=== PATIENT | female | born 1980 | race Caucasian/White ===

== ENCOUNTER 2024-07-31 08:54 | Outpatient (REF) | payer OTHER, SELFPAY ==
[2024-07-31 10:41] LABS: MANUAL DIFF FLAG NO
[2024-07-31 10:49] LABS: Basophils Absolute Auto 0.1 X10*3/uL (0.0-0.2); Basophils Percent Auto 0.8 % (0-2); Eosinophils Absolute Auto 0.4 X10*3/uL (0.0-0.4); Eosinophils Percent Auto 4.8 % (0-4); Hematocrit 35.8 % (37.0-47.0); Hemoglobin 11.9 g/dl (12.0-16.0); Imm Gran Abs Auto 0.01 X10*3/uL (0.00-0.03); Imm Gran Pct Auto 0.1 % (0.0-0.4); Lymphocytes Absolute Auto 1.5 X10*3/uL (1.2-4.9); Lymphocytes Percent Auto 16.6 % (20-40); Mean Corpuscular HGB Conc 33.2 g/dl (31.0-35.0); Mean Corpuscular Hemoglobin 31.2 pg (27.0-33.0); Mean Platelet Volume 9.9 fL (9.4-12.3); Monocytes Percent Auto 10.5 % (2-11); Neutrophils Absolute Auto 6.1 x10*3/uL (2.0-8.3); Neutrophils Percent Auto 67.2 % (45-73); Platelet Count 325 X10*3/uL (160-400); Red Blood Count 3.81 X10*6/uL (4.20-5.50); Red Cell Distribution Width 12.2 % (11.0-16.0); White Blood Count 9.1 X10*3/uL (4.8-10.8)
[2024-07-31 11:14] LABS: Rheumatoid Factor 15.9 IU/mL (<15.0)
[2024-07-31 11:25] LABS: Alanine Aminotransferase 18 U/L (0-31); Albumin Level 4.4 g/dL (3.5-5.0); Alkaline Phosphatase 59 U/L (39-117); Anion Gap 10 (12-20); Aspartate Amino Transferase 21 U/L (5-31); Bilirubin Total 0.4 mg/dL (0.0-1.0); Blood Urea Nitrogen 10 mg/dL (9-16); Calcium 9.6 mg/dL (8.4-10.2); Carbon Dioxide 26 mmol/L (22-29); Chloride 106 mmol/L (96-108); Cholesterol 169 mg/dL (<200); Estimated Glomerular Filt Rate > 60; Glucose Random 82 mg/dL (60-115); HDL Cholesterol 53 mg/dL (>40); LDL Cholesterol Calculated 105 mg/dL (<100); Potassium 4.1 mmol/L (3.3-5.1); Sodium 138 mmol/L (135-145); Total Protein 8.2 g/dL (6.5-8.0); Triglycerides 56 mg/dL (<150)
[2024-07-31 11:28] LABS: Erythrocyte Sedimentation Rate 21 MM/HR (0-20)
[2024-07-31 11:42] LABS: Thyroid Stimulating Hormone 1.49 uIU/mL (0.32-4.0)
[2024-08-03 22:08] LABS: Cyclic Citrullinated Peptide <16 UNITS
[2024-08-06 14:09] LABS: Anti Nuclear Antibody Screen NEGATIVE (NEGATIVE)
== END 2024-07-31 08:55 | disposition home or self-care (01) ==
LOC: HO.10HDL 08:54
PROVIDERS: Visit Provider Internal Medicine
DX: Z00.00 Encounter for general adult medical examination without abnormal findings (principal); Z13.31 Encounter for screening for depression; M13.0 Polyarthritis, unspecified; E66.9 Obesity, unspecified
CPT/HCPCS: 36415; 80053; 80061; 84443; 85025; 85652; 86038; 86200; 86431

== ENCOUNTER 2025-04-26 14:52 | Outpatient (AMB) | payer OTHER, SELFPAY ==
--- NOTE | 2025-04-26 15:12 | A.OFFPC_ITS ---
Vital Signs 04/26/25 15:15 Height 5 ft 2.6 in Weight 211 lb BMI 37.9 BP 132/80 Respiration 16 Pulse 84 Pulse Source Pulse Oximeter Temp 98.2 F Temp Source Temporal Artery Scan Pulse Oximetry (%) 97 Oxygen Delivery Method Room Air Intake Visit Reasons: establish 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 with a new primary care physician. She was previously screened for diabetes, with neg ative results. Review of recent lab results reveals mild anemia with a hemoglobin of 11.9 g/dL and borderline elevated cholesterol with an LDL of 105 mg/dL. Her electrolytes, kidney function, and gallbladder function were normal. Previous lab work included thyroid studies, but vitamin D, vitamin B12, and iron levels were not checked. The patient reports experiencing bone pain and headaches, which she questions may be related to her age. She has a history of a mammogram performed six years ago in [place] and is seeking a referral for a paper machine backtender. Social History - The patient moved from [place] thr ee years ago. - She desires to lose weight. [facility] Medical History (Updated 04/26/25 @ 16:39 by Janiya Rodriguez PA-C) Healthcare maintenance Insomnia Mild anemia Hyperlipidemia LDL goal <100 Heart murmur Cervical cancer screening Class 2 obesity with body mass index (BMI) of 37.0 to 37.9 in adult Rheumatoid factor positive Multiple joint pain Family History Mother Obesity Diabetes Father No problems noted. Social History Housing: House Alcohol intake: current Alcohol intake frequency: holidays/special occasions only Patient Tobacco Use Status: Never used Tobacco service: No Current occupational status: unemployed Cognitive needs: No Hearing needs: No Vision needs: Yes (rx glasses) Questionnaire PHQ-9 Over the last 2 weeks, how often have you been bothered by any of the following problems? 1. Little interest or pleasure in doing things: not at all 2. Feeling down, depressed, or hopeless: not at all 3. Trouble falling or staying asleep, or sleeping too much: not at all 4. Feeling tired or having little energy: not at all 5. Poor appetite or overeating: not at all 6. Feeling bad about yourself - or that you are a failure or have let yourself or your family down: not at all 7. Trouble concentrating on things, such as reading the newspaper or watching television: not at all 8. Moving or speaking so slowly that other people could have noticed. Or the opposite - being so fidgety or restless that you have been moving around a lot more than usual: not at all 9. Thoughts that you would be better off or of hurting yourself in some way: not at all Total score: 0 Depression Screening Interpretation: Negative Depression Screening Done: Yes 77203 - PHQ-9 Billing: Yes Source: Developed by Drs. Glenn Bagley, Jaimie Butts, Kings Robbins and colleagues, with an educational geoffrey from [employer]. Thrive Questionnaire Date Thrive assessed: 04/26/25 I am a: Patient What is your living situation today?: I have a steady place to live Within the past 12 months, did the food you bought not last and you didn't have the money to get more?: Never true Within the past 12 months, did you worry whether your food would run out before you got money to buy more?: Never true Do you have trouble paying for medicines?: No Do you have trouble getting transportation to medical appointments?: No Do you have trouble paying your heating and electricity bill?: No Do you have trouble taking care of your child, family member or friend?: No Do you have trouble with day-to-day activities such as bathing, preparing meals, shopping, managing finances, etc.?: No Are you currently unemployed and looking for a job?: No Are you interested in more education?: No Please select the resources that you would like help with: None THRIVE Score: 0 AUDIT C Alcohol Use Questionnaire (AUDIT-C) 1. How often do you have a drink containing alcohol?: Monthly or less 2. How many drinks containing alcohol do you have on a typical day when you are drinking?: 1 or 2 3. How often do you have six or more drinks on one occasion?: Never Total Score: 1 Score Reviewed/Action Taken: No ALVARO-7 AMB Questionnaire ALVARO-7 Date ALVARO - 7 assessed: 04/26/25 Feeling nervous, anxious, or on edge: 0 = Not at all Not being able to stop or control worryin = Not at all Worrying too much about different things: 0 = Not at all Trouble relaxin = Not at all Being so restless that it is hard to sit still: 0 = Not at all Becoming easily annoyed or irritable: 0 = Not at all Feeling afraid as if something awful might happen: 0 = Not at all Total ALVARO-7 score (0-4 normal; 5-9 mild; 10-14 moderate; 15-21 severe): 0 Source: Developed by Drs. Glenn Bagley, Jaimie Butts, Kings Robbins and colleagues, with an educational geoffrey from [employer]. ALVARO-7 Assessment Billing ALVARO-7 Assessment Tool: ALVARO-7 Assessment 08229 Review of Systems Const Details: - Neurological: Reports headaches. - Musculoskeletal: Reports bone pain. - Sleep: Reports interrupted sleep, waking at 11 p.m. after initially falling asleep. All systems reviewed & are unremarkable except as noted in HPI and below Physical exam (Primary Care) Vital Signs: Last Vital Signs Temp 98.2 F 04/26/25 15:15 Pulse 84 04/26/25 15:15 Resp 16 04/26/25 15:15 BP 132/80 04/26/25 15:15 Pulse Ox 97 04/26/25 15:15 Oxygen Delivery Method Room Air 04/26/25 15:15 Care Plan Goal for BP management: <140/90 at Goal BMI result Body Mass Index 37.9 BMI Assessment/Plan discussion: High BMI High, discussed plan: lifestyle, weight reduction, dietary, physical activity, alcohol moderation and other Tobacco/Smoking Status: Tobacco use Status Tobacco use date assessed 04/26/25 04/26/25 15:21 Patient Tobacco Use Status Never used Tobacco 04/26/25 15:21 PHQ-9: PHQ-9 Score PHQ-9: Total score 0 04/26/25 15:39 Depression Screening Interpretation: Negative Thrive Assessment: Date of Thrive Assessment Date Thrive assessed 04/26/25 04/26/25 15:21 Const Other: Appearance: Alert. Oriented X3. No acute distress. Head: Normal external exam. Normocephalic. Atraumatic. Eyes: Pupils are equal, round, and reactive to light. Extraocular movements intact. Conjunctiva and sclera normal. Eyelids normal. Ears: External auditory canal normal. Tympanic membranes normal. Throat: Pharynx normal. Uvula midline. Moist mucous membranes. Neck: Normal inspection. Neck supple. Full range of motion. No adenopathy. Thyroid Normal. No meningeal signs. No neck mass noted. Cardiovascular: Normal heart rate and rhythm. Heart sound normal. A small murmur noted. Pulses normal throughout. Respiratory: No respiratory distress. Painless inspiration. Breath sounds normal. No wheezes/rales/rhonchi noted. Chest nontender. No accessory muscle usage noted or decreased air movement noted. Abdomen: Soft and nontender. Bowel sounds normal in all 4 quadrants. No distention noted. No organomegaly noted. No visible injury noted. Back: No costovertebral angle tenderness. Full range of motion noted. Skin: Skin warm and dry. Normal skin color. Normal skin turgor. No rashes/lesions/lacerations noted. Extremities: No lower extremity edema. Extremities exhibit normal range of motion. Extremities nontender. Neuro: Oriented X 3. No motor deficit. No sensory deficit. Reflexes normal. Office Procedures Flu Questionnaire Does the patient have a severe egg allergy?: No Does the patient have severe life threatening allergies?: No Does the patient have a fever or illness today?: No Has the patient ever had Guillain-[place] Syndrome?: No Has the patient ever had any past reaction to a flu shot?: No Results AMB Hemoglobin A1c AMB Hemoglobin A1c 4.3 % Last Edit by LULU Nguyen on 04/26/25 15:47 Immunizations Fluarix [id number] (PF) 45 mcg (15 mcg x 3)/0.5 mL IM syringe Performing Provider: Janiya Rodriguez PA-C Performing Location: [facility] Administered by: LULU Nguyen on 04/26/25 15:21 Dose Route Admin Location Dispensed Lot Number Expiration Date NDC Ret[employer] Actuary 0.5 mL IM Left Deltoid 0.5 mL [id number] 12/28/25 [id number] [employer] VIS Given Date VIS Provided VIS Publication Date 04/26/25 Single Vaccine 24 Eligibility Eligibility Date Funding Source Not [facility] Eligible 04/26/25 Private Results Reviewed Results Reviewed: - Labs: Recent bloodwork showed mild anemia (hemoglobin 11.9 g/dL), LDL arthur sterol of 105 mg/dL, normal electrolytes, and normal kidney and gallbladder function. - Screening: A previous diabetes check was negative. - Imaging: Last mammogram was six years ago. Coding Level of Care Code New Pt Level 4 (61809) Complex EM visit Add On G2211 Diagnoses Class 2 obesity with body mass index (BMI) of 37.0 to 37.9 in adult E66.9; Z68.37 Hyperlipidemia LDL goal <100 E78.5 Multiple joint pain M25.50 Rheumatoid factor positive R76.8 Mild anemia D64.9 Heart murmur R01.1 Insomnia G47.00 Healthcare maintenance Z00.00 Cervical cancer screening Z12.4 Additional Codes PHQ-9 - 41750 - PHQ-9 Billing: Yes ([id number]) ALVARO-7 Assessment Billing - ALVARO-7 Assessment Tool: ALVARO-7 Assessment 78428 ([id number]) Time Spent (min) 60 Assessment & Plan Assessment & Plan (1) Class 2 obesity with body mass index (BMI) of 37.0 to 37.9 in adult: Code(s): E66.9 - Obesity, unspecified; Z68.37 - Body mass index [BMI] 37.0-37.9, adult Category: Medical Plan: A prior authorization will be submitted for a GLP-1 agonist, such as Zepbound or Wegovy, for weight management. The patient was counseled on the weekly subcutaneous injection technique, including site rotation and the dose titration schedule, starting at 2.5 mg for four weeks and increasing monthly. Potential side effects, including abdominal pain, vomiting, and the risk of pancreatitis, were discussed, and the patient was advised to report any such symptoms im mediately. The importance of exercise to prevent muscle mass loss during treatment was emphasized. As an alternative, a referral to a weight management program will be placed in case the medication is not approved by insurance. (2) Hyperlipidemia LDL goal <100: Code(s): E78.5 - Hyperlipidemia, unspecified Category: Medical Plan: The patient's LDL cholesterol is 105 mg/dL. Medication will not be initiated at this time; instead, educational material on dietary modification will be provided. The planned weight loss interventions are also expected to improve cholesterol levels. (3) Multiple joint pain: Code(s): M25.50 - Pain in unspecified joint Category: Medical Plan: The patient reports bone pain. Due to a positive marker in her recent labs, a referral to a telephone order dispatcher is being made to evaluate for conditions such as rheumatoid arthritis. (4) Rheumatoid factor positive: Code(s): R76.8 - Other specified abnormal immunological findings in serum Category: Medical Plan: The patient reports bone pain. Due to a positive marker in her recent labs, a referral to a telephone order dispatcher is being made to evaluate for conditions such as rheumatoid arthritis. (5) Mild anemia: Code(s): D64.9 - Anemia, unspecified Category: Medical Plan: Recent labs show a hemoglobin of 11.9 g/dL. New lab orders will be placed to check for iron, vitamin B12, and vitamin D levels. (6) Heart murmur: Code(s): R01.1 - Cardiac murmur, unspecified Category: Medical Plan: A soft heart murmur, suspected to be chronic regurgitation, was noted on auscultation. An echocardiogram will be ordered to assess cardiac structure and function. If any significant abnormalities are found, a cardiology referral will be made; otherwise, the murmur will be monitored with annual echocardiograms. (7) Insomnia: Code(s): G47.00 - Insomnia, unspecified Category: Medical Plan: The patient reports interrupted sleep. The patient was advised to try a half tablet of a 50 mg sleep aid in the evening to assess for effect and tolerance. (8) Healthcare maintenance: Code(s): Z00.00 - Encounter for general adult medical examination without abnormal findings Category: Medical Plan: A referral for a mammogram will be placed, as her last screening was six years ago. The patient will also be given a referral to a paper machine backtender for routine care. Follow-up is scheduled for six months. (9) Cervical cancer screening: Code(s): Z12.4 - Encounter for screening for malignant neoplasm of cervix Category: Medical Plan: Will refer to front office spec for cervical cancer screening. Plan Plan Patient was informed and verbally consented to the use of an ambient scribe for clinic note documentation during this visit. 1. Overweight A prior authorization will be submitted for a GLP-1 agonist, such as Zepbound or Wegovy, for weight management. The patient was counseled on the weekly subcutaneous injection technique, including site rotation and the dose titration schedule, starting at 2.5 mg for four weeks and increasing monthly. Potential side effects, including abdominal pain, vomiting, and the risk of pancreatitis, were discussed, and the patient was advised to report any such symptoms immediately. The importance of exercise to prevent muscle mass loss during treatment was emphasized. As an alternative, a referral to a weight management program will be placed in case the medication is not approved by insurance. 2. Hyperlipidemia The patient's LDL cholesterol is 105 mg/dL. Medication will not be initiated at this time; instead, educational material on dietary modification will be provided. The planned weight loss interventions are also expected to improve cholesterol levels. 3. Arthralgia The patient reports bone pain. Due to a positive marker in her recent labs, a referral to a telephone order dispatcher is being made to evaluate for conditions such as rheumatoid arthritis. 4. Mild Anemia Recent labs show a hemoglobin of 11.9 g/dL. New lab orders will be placed to check for iron, vitamin B12, and vitamin D levels. 5. Heart Murmur A soft heart murmur, suspected to be chronic regurgitation, was noted on auscultation. An echocardiogram will be ordered to assess cardiac structure and function. If any significant abnormalities are found, a cardiology referral will be made; otherwise, the murmur will be monitored with annual echocardiograms. 6. Insomnia The patient reports interrupted sleep. The patient was advised to try a half tablet of a 50 mg sleep aid in the evening to assess for effect and tolerance. 7. Health Maintenance A referral for a mammogram will be placed, as her last screening was six years ago. The patient will also be given a referral to a paper machine backtender for routine care. Follow-up is scheduled for six months. I reviewed the patient's recent lab work with her, noting the mild anemia and borderline high cholesterol. I explained that we would order further labs for the anemia and provide dietary information for the cholesterol rather than starting medication at this time. We discussed her goal of weight loss, and I explained the plan to seek insurance approval for a GLP-1 agonist injection such as Zepbound. I demonstrated how to use the injection pen and detailed the dose titration schedule. I counseled her on potential side effects, including the risk of pancreatitis, and advised her on when to contact me. I also explained that a referral to a weight management program would be our alternative plan. I informed the patient that I detected a soft heart murmur during her exam, which I suspect is a chronic finding. I explained that we would order an echocardiogram for further evaluation and would refer her to a tile layer helper if there were any abnormal findings. We also addressed her bone pain by placing a referral to a telephone order dispatcher. Finally, we discussed the need for continued health screenings, and I placed referrals for a mammogram and a paper machine backtender. We will follow up in six months to review her progress. Orders: Orders Influenza [id number] Immunization Today Z23 - Encounter for immunization AMB Hemoglobin A1c Today Z13.9 - Encounter for screening, unspecified Magnesium Today Z00.00 - Encounter for general adult medical examination without abnormal findings Erythrocyte Sedimentation Rate Today Z00.00 - Encounter for general adult medical examination without abnormal findings C Reactive Protein Today Z00.00 - Encounter for general adult medical examination without abnormal findings UA CC w/rflx Micro + Cult Today Z00.00 - Encounter for general adult medical examination without abnormal findings MM screening mammo BI Today Z12.31 - Encounter for screening mammogram for malignant neoplasm of breast Vitamin D 25-OH Total Today Z00.00 - Encounter for general adult medical examination without abnormal findings Vitamin B12 and Folate Today Z00.00 - Encounter for general adult medical examination without abnormal findings IRON PROFILE Today D64.9 - Anemia, unspecified Ferritin Today D64.9 - Anemia, unspecified CA echo transthoracic complete Today R01.1 - Cardiac murmur, unspecified Referrals Rheumatology Referral M25.50 - Pain in unspecified joint, R76.8 - Other specified abnormal immunological findings in serum Medical Weight Management Referral E66.9 - Obesity, unspecified, Z68.37 - Body mass index [BMI] 37.0-37.9, adult SPORTS PHYSICAL THERAPIST Referral Z12.4 - Encounter for screening for malignant neoplasm of cervix Medications: New tirzepatide (weight loss) (Zepbound) for 4 weeks 2.5 mg (0.5 mL) subcut QWEEK 2 mL 0RF E66.9 - Obesity, unspecified, M25.50 - Pain in unspecified joint, R76.8 - Other specified abnormal immunological findings in serum, Z68.37 - Body mass index [BMI] 37.0- 37.9, adult Patient Instructions: - You will receive a referral for blood tests to check your iron, vitamin B12, and vitamin D levels. - You do not need to fast (not eat) for these labs. - We will request approval from your insurance for a weekly injection for weight loss. - If you experience severe stomach pain or vomiting while on this medication, contact our office. - If it is not approved, we have referred you to a weight management program as another option. - You will receive a call from a telephone order dispatcher's office to schedule an appointment for your bone pain. - You will also be contacted to schedule a mammogram and a heart ultrasound (sonogram). - For trouble sleeping, you can take half of the prescribed 50 mg tablet in the evening around 6 or 7 p.m. to see how you feel. - Please schedule a follow-up appointment in six months.
[2025-04-26 15:15] VITALS: BP 132/80; PULSE 84; RESP 16; TEMP 36.8; O2SAT 97; BMI 37.9
== END 2025-04-26 16:06 | disposition home or self-care (01) ==
PROVIDERS: PCP Physician Assistant Medical; Visit Provider Physician Assistant Medical
DX: E66.9 Obesity, unspecified (principal); Z68.37 Body mass index [BMI] 37.0-37.9, adult; E78.5 Hyperlipidemia, unspecified; M25.50 Pain in unspecified joint; R76.89 Other specified abnormal immunological findings in serum; D64.9 Anemia, unspecified; R01.1 Cardiac murmur, unspecified; G47.00 Insomnia, unspecified; Z00.00 Encounter for general adult medical examination without abnormal findings; Z12.4 Encounter for screening for malignant neoplasm of cervix; Z23 Encounter for immunization; Z13.9 Encounter for screening, unspecified

== ENCOUNTER → 2025-04-26 14:52 | Outpatient (BNVA) | payer OTHER, SELFPAY | PROVIDERS: PCP Physician Assistant Medical; Visit Provider Physician Assistant Medical | DX: Z00.00 Encounter for general adult medical examination without abnormal findings (principal); E11.9 Type 2 diabetes mellitus without complications; E66.9 Obesity, unspecified; E78.5 Hyperlipidemia, unspecified; M25.50 Pain in unspecified joint; R76.89 Other specified abnormal immunological findings in serum; D64.9 Anemia, unspecified; R01.1 Cardiac murmur, unspecified; G47.00 Insomnia, unspecified; Z23 Encounter for immunization; Z68.37 Body mass index [BMI] 37.0-37.9, adult | CPT/HCPCS: 83036; 90471; 90656; 96127 ==

== ENCOUNTER 2025-05-06 13:47 | Outpatient (REF) | payer OTHER, SELFPAY | END 2025-05-06 13:48 | disposition home or self-care (01) | LOC: HO.MAMMO 13:47 | PROVIDERS: PCP Physician Assistant Medical; Visit Provider Physician Assistant Medical | DX: Z12.31 Encounter for screening mammogram for malignant neoplasm of breast (principal) | CPT/HCPCS: 77063; 77067 ==

== ENCOUNTER → 2025-05-06 14:30 | Outpatient (BNV) | payer OTHER, SELFPAY | PROVIDERS: PCP Physician Assistant Medical; Visit Provider Internal Medicine | DX: Z12.31 Encounter for screening mammogram for malignant neoplasm of breast (principal) | CPT/HCPCS: 77063; 77067 ==

== ENCOUNTER 2025-05-12 09:17 | Outpatient (REF) | payer OTHER, SELFPAY ==
[2025-05-12 11:27] LABS: Appearance Urine Clear; Glucose Urine UA Negative (Negative); PH 6.0 (5.0-9.0); Specific Gravity - Urine 1.010 (1.005-1.025)
[2025-05-12 12:12] LABS: Iron 93 mcg/dL (30-160); Magnesium 1.8 mg/dL (1.6-2.6); Percent Iron Saturation 31 % (15-50); Total Iron Binding Capacity 300 mcg/dL (228-428); Unsaturated Iron Binding 207 ug/dL
[2025-05-12 12:28] LABS: Folate 8.9 ng/mL (> or = 4.0); Vitamin B12 349 pg/mL (200-900)
[2025-05-12 12:31] LABS: Ferritin 68 ng/mL (10-250)
== END 2025-05-12 09:18 | disposition home or self-care (01) ==
LOC: HO.HMGCLDS 09:17
PROVIDERS: PCP Physician Assistant Medical; Visit Provider Physician Assistant Medical
DX: Z00.00 Encounter for general adult medical examination without abnormal findings (principal); D64.9 Anemia, unspecified
CPT/HCPCS: 36415; 81003; 82306; 82607; 82728; 82746; 83540; 83735; 85652; 86140

== ENCOUNTER → 2025-05-14 08:51 | Outpatient (REF) | payer OTHER, SELFPAY ==
--- NOTE | 2025-05-14 08:53 | CA_ITS ---
Transthoracic Echocardiogram Patient (Last, First, Middle): Cherri Rawls, Gender: F Date of : 1980 Age: 44 Procedure Date: 05/14/2025 Procedure Type: Transthoracic Echocardiogram Location: OP Height: 160.02 cm Weight: 95.71 kg BSA: 1.98 m2 Heart Rate: bpm BP: 128 / 84 mmHg Cruise Director: TO Referring MD: Janiya Rodriguez PA-C Change Management Administrator: Satish Hargrove MD Symptoms: R01.1 - Cardiac murmur, unspecified Study Quality: Adequate ECG Rhythm: Sinus Conclusions: - Normal study Findings Left Ventricle Normal left ventricular size, thickness, and systolic function. The visually estimated ejection fraction is between 60-65%. Diastolic function is normal for age. Right Ventricle Normal right ventricular cavity size and systolic function. Atria Both atria are normal in size. There is no evidence of interatrial shunt. Aortic Valve Normal aortic valve structure and function. There is no aortic valve stenosis. There is no aortic valve regurgitation. Mitral Valve Normal mitral valve structure and function. There is trace mitral valve regurgitation. There is no mitral valve stenosis. Pulmonic Valve The pulmonic valve is likely normal. There is trace pulmonic valve regurgitation. Tricuspid Valve Normal tricuspid valve structure. There is trace tricuspid valve regurgitation. The right ventricular systolic pressure is normal. The right ventricular systolic pressure is 17 mmHg. Normal right atrial pressure. There is no evidence of pulmonary hypertension. Great Vessels All visible segments of the aorta are normal in size. The pulmonary artery was not well visualized. Venous The inferior vena cava is normal in size and collapses greater than 50% with inspiration. Pericardium/Pleural There is no evidence of pericardial effusion. Prior Study Comparison No prior study available for comparison. Measurements 2D Linear Measurements IVSd: 0.91 0.6-0.9/0.6-1.0 cm LVIDd: 5.06 3.9-5.3/4.2-5.9 cm LVIDd Index: 2.56 2.4-3.2/2.2-3.1 cm/m2 LVIDs: 2.95 2.0-3.6 cm LVPWd: 0.83 0.7-1.1 cm LA Diam: 4.00 2.7-3.8/3.0-4.0 cm LAIDs Index: 2.02 1.5-2.3 cm/m2 LV Mass: 192.56 67-162/88-224 g LV Mass Index: 97.25 43-95/49-115 g/m2 LVOT Diam: 2.10 3.0+(-)1.3 cm 2D Systolic Function EF 4C: 59.40 >55% EF 2C: 68.00 >55% EF BiP: 63.80 >55% Mitral Valve MV Pk E: 0.88 MV PK A: 0.55 MV Decel Time: 197.00 E/A: 1.60 E'Lateral: 10.40 E'Medial: 7.72 E/E' Med: 11.40 E/E' Lat: 8.50 PHT: 58.00 MVA PHT: 3.79 Decel Christian: 4.46 Aortic Valve AoV Pk Eddi: 1.51 AoV Mn Eddi: 1.05 AoV VTI: 0.34 AoV Pk Grad: 9.00 Aov Mn Grad: 5.00 WILLIE Cont.VTI: 2.79 LVOT LVOT Pk Eddi: 1.33 LVOT Mn Eddi: 0.86 LVOT VTI: 0.28 LVOT Pk Grad: 7.00 LVOT Mn Grad: 3.00 LVOT Diam: 2.10 LVOT Area: 3.46 Diastolic Function MV Pk E: 0.88 MV Pk A: 0.55 E/A: 1.60 E'Medial: 7.72 E/E' Med: 11.40 E' Laterial: 10.40 E/E' Lat: 8.50 Right Ventricle TAPSE (mm): 26.90 TVS' Eddi: 14.80 Tricuspid Valve TR Pk Eddi: 1.89 TR Pk Grad: 14.00 RA Press: 3.00 RVSP: 17.00 Great Vessels Aorta Sinus of Valsalva: 2.70 2.0-3.5 cm Ao Asc: 2.70 2.1-3.4 cm Ao Arch: 2.70 Updated in Other Vendor System with Status of Final Satish Hargrove MD electronically signed on 05/14/2025 6:22:16 PM with status of Final
== END ==
LOC: HO.CARD 08:51
PROVIDERS: PCP Physician Assistant Medical; Visit Provider Physician Assistant Medical
DX: R01.1 Cardiac murmur, unspecified (principal)
CPT/HCPCS: 93306

== ENCOUNTER → 2025-05-14 08:53 | Outpatient (BNV) | payer OTHER, SELFPAY | PROVIDERS: PCP Physician Assistant Medical; Visit Provider Internal Medicine Cardiovascular Disease | DX: R01.1 Cardiac murmur, unspecified (principal) | CPT/HCPCS: 93306 ==

== ENCOUNTER 2025-05-25 10:33 | Outpatient (AMB) | payer OTHER, SELFPAY ==
--- NOTE | 2025-05-25 10:36 | A.OFFVIS_ITS ---
Vital Signs 05/25/25 10:43 Height 5 ft 2 in Weight 135 lb 2.294 oz BMI 24.7 BP 132/74 Blood Pressure Location Lt brachial Position Standing Pulse 81 Pulse Source Pulse Oximeter Pulse Oximetry (%) 99 Oxygen Delivery Method Room Air Intake Visit Reasons: joint pain/ New Patient Intake Note: Patient is a new patient, internally referred by PCP SONYA Morillo. Presents for joint pain. Patient states her pain is in the upper part of the body for 15 years. Heavy Equipment Service Manager Required: Yes Heavy Equipment Service Manager Services: Heavy Equipment Service Manager Present Heavy Equipment Service Manager Name: [email or web address] [id number] Information Interpreted: non-clinical & clinical Accompanied by: Self / Same As Patient Allergies No Known Allergies Allergy (Verified 05/25/25 10:47) HPI Comments Details: This is a 44-year-old female who is presenting to me as a new patient for the evaluation of joint pain. She states she has bilateral pain in the wrists in bilateral elbows and in the trapezius muscles bilaterally. She states she has morning stiffness in these joints lasting only 20 mins, releived by hot shower. She has some lower back, these episodes of joint pain in the hands shoulders happen once a week. Her lower back pain occurs 3 days before periods and improves once periods is over. The pain is worse at night. She has not noticed active synovitis in her joints She also complains of very poor sleep, she reports that she has sleep lasting for only 4-5 hours and she feels unrefreshed. She has never had a sleep study. She takes nothing for pain control. ROS: No photosesitivy, no oral ulcers, no hair fall, no raynauds phenemon, no miscrriage, no blood lot, no dry eyes and dry mouth, no skin rashes FH: mom has RA Labs reviewed, CBC show no significant abnormality, last sed rate was normal, CRP elevated 0.62, RF was elevated, CCP and AARON negative, Vital signs reviewed Physical Examination CONSTITUITIONAL Patient alert and cooperative. Well appearing and in no apparent painful distress HEENT Conjunctiva and sclera clear. No lymphadenopathy. CHEST/RESPIRATORY SYSTEM Normal respiratory effort and able to speak in complete sentences. Clear to auscultation bilaterally. No crackles, rales, rhonchi, wheezes heard. CARDIAC SYSTEM Regular rate and rhythm. S1 and S2 heard no murmurs. Radial pulses intact bilaterally MSK Hands * Right Hand: Able to make a fist. No swelling or tenderness to palpation of the MCPs, PIPs or DIPs. No deformities noted. * Left Hand: Able to make a fist. No swelling or tenderness to palpation of the MCPs, PIPs or DIPs. No deformities noted. Wrists * Right Wrist: Full ROM to flexion and extension. No swelling or TTP * Left Wrist: Full ROM to flexion and extension. No swelling or TTP Elbows * Right Elbow: Full ROM. No swelling or TTP. No TTP of the medial epicondyle. No TTP of the lateral epicondyle * Left Elbow: Full ROM. No swelling or TTP. No TTP of the medial epicondyle. No TTP of the lateral epicondyle Shoulders * Right shoulder: Full ROM. No swelling noted. No TTP of the AC joint. No TTP of the subacromial bursa. No TTP of the posterior shoulder * Left shoulder: Full ROM. No swelling noted. No TTP of the AC joint. No TTP of the subacromial bursa. No TTP of the posterior shoulder Hips * Right hip: Good ROM. No pain elicited with hip flexion/internal rotation/external rotation * Left hip: Good ROM. No pain elicited with hip flexion/internal rotation/external rotation Hip bursa: No tenderness to palpation bilaterally Knees * Right knee: Full ROM. No swelling noted. No TTP of the knee joint line. No TTP of pes anserine bursa * Left knee: Full ROM. No swelling noted. No TTP of the knee joint line. No TTP of pes anserine bursa. Ankles * Right ankle: Good ankle dorsiflexion and plantar flexion. No swelling. No TTP of the ankle joint * Left ankle: Good ankle dorsiflexion and plantar flexion. No swelling. No TTP of the ankle joint Feet * Right foot: Negative squeeze test * Left foot: Negative squeeze test Tender points? * SLIGHT tenderness to palpation of the bilateral trapezius, NO TENDERNESS TO PALPATION ON supraspinatus, anterior costochondral junctions, bilateral suboccipital muscle insertions SKIN No rashes [facility] Medical History (Updated 05/25/25 @ 11:54 by Jerri Moss MD) Pulmonic regurgitation Tricuspid regurgitation Mitral regurgitation History of mammogram (~05/06/25) Healthcare maintenance Insomnia Mild anemia Hyperlipidemia LDL goal <100 (~05/25/25) Heart murmur Cervical cancer screening Class 2 obesity with body mass index (BMI) of 37.0 to 37.9 in adult Rheumatoid factor positive Multiple joint pain Surgical History (Updated 05/20/25 @ 14:50 by Berenice Lake CMA) No history of previous surgery Family History Mother Obesity Diabetes Father No problems noted. Social History Housing: House Alcohol intake: current Alcohol intake frequency: holidays/special occasions only Patient Tobacco Use Status: Never used Tobacco service: No Current occupational status: unemployed Cognitive needs: No Hearing needs: No Vision needs: Yes (rx glasses) Physical Exam Vital Signs: Last Vital Signs Pulse 81 05/25/25 10:43 BP 132/74 05/25/25 10:43 Pulse Ox 99 05/25/25 10:43 Oxygen Delivery Method Room Air 05/25/25 10:43 BMI result Body Mass Index 24.7 Assessment & Plan Assessment & Plan (1) Multiple joint pain: Code(s): M25.50 - Pain in unspecified joint Category: Medical (2) Rheumatoid factor positive: Code(s): R76.8 - Other specified abnormal immunological findings in serum Category: Medical (3) Fibromyalgia: Code(s): M79.7 - Fibromyalgia Category: Medical Plan 44-year-old female that presents with intermittent symmetric polyarthralgia, located mainly in the hands, wrists, elbows shoulder hips and knees. Morning stiffness in these joints lasts for about 20 minutes. She does not take anything for pain control. There is no active synovitis in any of these joints. On blood work AARON was negative, RF was mildly positive, negative CCP. Last ESR was within normal limits and CRP slightly elevated at 0.65. Based on her history and physical exam, there is low likelihood of inflammatory diseases like SLE, psoriatic arthritis. Her hands do not exhibit the features of rheumatoid arthritis, no active synovitis noted. However I will obtain bilateral hand x-rays to rule out inflammatory arthritis and to look for stigmata like erosions. She also had pain in her knee and hip, we will obtain x-rays of these to see the extent of arthritis. Her history is very compatible with superimposed fibromyalgia, I will refer to PT and OT for evaluation and treatment of her joint pain. I will also refer her to sleep Medicine to rule out possible sleep apnea. We will see her back in 3 weeks for the discussion of her x-rays and blood work. And for further management I offered the patient muscle relaxant low-dose cyclobenzaprine to take at night to help improve her sleep and symptoms of fibromyalgia however she declined. Patient handout and education regarding fibromyalgia was provided to the patient. Orders: Orders XR Wrist Terrell 2V Today M79.7 - Fibromyalgia PT Evaluation and Treatment Today M79.7 - Fibromyalgia XR hip BI w PEL1V Today M25.50 - Pain in unspecified joint XR Knee Terrell 1or 2V Today M25.50 - Pain in unspecified joint XR Hand Terrell 2V Today M25.50 - Pain in unspecified joint, M79.7 - Fibromyalgia, R76.8 - Other specified abnormal immunological findings in serum OT Evaluation and Treatment Today M79.7 - Fibromyalgia Referrals Sleep Medicine Referral M79.7 - Fibromyalgia Coding Level of Care Code New Pt Level 4 (97027) Diagnoses Multiple joint pain M25.50 Rheumatoid factor positive R76.8 Fibromyalgia M79.7
[2025-05-25 10:43] VITALS: BP 132/74; PULSE 81; O2SAT 99; BMI 24.7
== END 2025-05-25 11:27 | disposition home or self-care (01) ==
LOC: HO.RHES 10:34
PROVIDERS: PCP Physician Assistant Medical; Visit Provider Student in an Organized Health Care Education/Training Program
DX: M25.50 Pain in unspecified joint (principal); R76.89 Other specified abnormal immunological findings in serum; M79.7 Fibromyalgia
CPT/HCPCS: 99204